=== PATIENT | male | born 1995 | race American Indian/Alaskan Native ===

== ENCOUNTER 2018-09-19 19:42 | Emergency (ER) | payer SELFPAY ==
--- NOTE | 2018-09-19 20:37 | Emergency Department Report ---
Chief Complaint: Extremity Injury, Lower Stated Complaint: ANKLE PAIN Time Seen by Provider: 09/19/18 20:37 - HPI History of Present Illness: R ANKLE PAIN P PLAYING BBALL RX NONE ALLERGY NONE PMH NONE PSH NONE N/V INTACT. MSE COMPLETED - Exam Vital Signs: Vital Signs 09/19/18 20:17 Temperature 99.3 F Pulse Rate 83 Respiratory 18 Rate Blood Pressure 138/78 O2 Sat by Pulse 100 Oximetry MSE screening note: Focused history and physical exam performed. Due to findings the following was ordered: ED Disposition for MSE Condition: Stable
--- NOTE | 2018-09-19 21:16 | XRay Report ---
XR ANKLE 3+V RT CLINICAL INDICATION: Male, 23 years of age. rt ankle injury/pain COMPARISON: None available. FINDINGS: 3 views of right ankle obtained. Ankle mortise is preserved. Bony structures are intact. No acute fracture or dislocation. IMPRESSION: No acute bony findings. This document is electronically signed by Jeremy Aburto DO., September 19 2018 09:14:25 PM ET
[2018-09-19] MEDS ORDERED: NORCO 5/325 PO ONE (23:56)
--- NOTE | 2018-09-20 01:23 | Emergency Department Report ---
ED Lower Extremity HPI - General Chief Complaint: Extremity Injury, Lower Stated Complaint: ANKLE PAIN Time Seen by Provider: 09/19/18 20:37 Source: patient Mode of arrival: Ambulatory Limitations: No Limitations - History of Present Illness Initial Comments: Patient is a 23 y/o aam who presents for right ankle pain 5/10 aching states he twisted ankle playing basket ball pt is partial weight bearing there is no bleeding MD Complaint: ankle injury Onset/Timin -: hour(s) Injury: Ankle: Right Type of Injury: eversion Place: street/outdoors Severity: moderate Severity scale (0 -10): 6 Improves With: nothing Worsens With: weight bearing, movement, palpation Context: running Associated Symptoms: snap/pop sensation, swelling, tingling, able to partially bear weight - Related Data Previous Rx's Medication Instructions Recorded Last Taken Type Cyclobenzaprine [Flexeril] 10 mg PO TID PRN #30 tablet 09/20/18 Unknown Rx Naproxen 500 mg PO BID PRN #30 tablet 09/20/18 Unknown Rx Allergies Allergy/AdvReac Type Severity Reaction Status Date / Time No Known Allergies Allergy Verified 09/19/18 20:14 ED Review of Systems ROS: Stated complaint: ANKLE PAIN Other details as noted in HPI Constitutional: denies: chills, fever Eyes: denies: eye pain, eye discharge, vision change ENT: denies: ear pain, throat pain Respiratory: denies: cough, shortness of breath, wheezing Cardiovascular: denies: chest pain, palpitations Endocrine: no symptoms reported Gastrointestinal: denies: abdominal pain, nausea, diarrhea Genitourinary: denies: urgency, dysuria Musculoskeletal: joint swelling (right ankle pain swelling ). denies: back pain, arthralgia Skin: denies: rash, lesions Neurological: denies: headache, weakness, paresthesias Psychiatric: denies: anxiety, depression Hematological/Lymphatic: denies: easy bleeding, easy bruising ED Past Medical Hx - Past Medical History Hx Asthma: Yes - Surgical History Past Surgical History?: No - Social History Smoking Status: Never Smoker Substance Use Type: None - Medications Home Medications: Home Medications Medication Instructions Recorded Confirmed Last Taken Type Cyclobenzaprine [Flexeril] 10 mg PO TID PRN #30 tablet 09/20/18 Unknown Rx Naproxen 500 mg PO BID PRN #30 tablet 09/20/18 Unknown Rx ED Physical Exam - General Limitations: No Limitations General appearance: alert, in no apparent distress - Head Head exam: Present: atraumatic, normocephalic - Eye Eye exam: Present: normal appearance, PERRL, EOMI Pupils: Present: normal accommodation - ENT ENT exam: Present: normal orophraynx, mucous membranes moist, TM's normal bilaterally, normal external ear exam - Expanded ENT Exam Expanded Ear exam: Present: normal external inspection Mouth exam: Absent: trismus Throat exam: Positive: tonsillar erythema, tonsillomegaly, other (uvula midline no stridor no lesions no exudate ). Negative: tonsillar exudate, R peritonsillar mass, L peritonsillar mass - Neck Neck exam: Present: normal inspection, full ROM, lymphadenopathy. Absent: tenderness, meningismus, thyromegaly - Expanded Neck Exam Expanded Neck exam: Absent: tenderness, midline deformity, anterior neck swelling, thy roid mass, carotid bruit, tracheal deviation - Respiratory Respiratory exam: Present: normal lung sounds bilaterally. Absent: respiratory distress, wheezes, stridor, chest wall tenderness - Cardiovascular Cardiovascular Exam: Present: regular rate, normal rhythm, normal heart sounds. Absent: systolic murmur, diastolic murmur, rubs, gallop - GI/Abdominal GI/Abdominal exam: Present: soft, normal bowel sounds - Rectal Rectal exam: Present: deferred - Extremities Exam Extremities exam: Present: normal inspection - Back Exam Back exam: Present: normal inspection, full ROM. Absent: tenderness, CVA tenderness (R), CVA tenderness (L), muscle spasm, paraspinal tenderness, vertebral tenderness, rash noted - Neurological Exam Neurological exam: Present: alert, oriented X3, CN II-XII intact, normal gait, reflexes normal - Psychiatric Psychiatric exam: Present: normal affect - Skin Skin exam: Present: warm, dry, intact, normal color. Absent: rash ED Course Vital Signs 09/19/18 09/19/18 09/20/18 20:17 20:41 00:24 Temperature 99.3 F 99.5 F Pulse Rate 83 87 Respiratory 18 18 16 Rate Blood Pressure 138/78 138/78 O2 Sat by Pulse 100 100 Oximetry ED Lower Extremity MDM - Radiology Data Radiology results: report reviewed, image reviewed no fracture mild soft tissue swelling - Medical Decision Making this is a ankle sprain xray neg for fracture , plan ankle stirrup , crutches follow up with ortho, naproxen flexeril for pain and spasm splint check ,crutche teacing, d/c to home in stable condition. Critical care attestation.: If time is entered above; I have spent that time in minutes in the direct care of this critically ill patient, excluding procedure time. ED Disposition Clinical Impression: Ankle sprain Qualifiers: Encounter type: initial encounter Involved ligament of ankle: unspecified ligament Laterality: right Qualified Code(s): S93.401A - Sprain of unspecified ligament of right ankle, initial encounter Disposition: TO HOME OR SELFCARE Is pt being admited?: No Does the pt Need Aspirin: No Condition: Stable Instructions: Ankle Sprain (ED), Ankle Exercises (GEN), Ankle Stirrup Splint (ED) Prescriptions: Cyclobenzaprine [Flexeril] 10 mg PO TID PRN #30 tablet PRN Reason: Muscle Spasm Naproxen 500 mg PO BID PRN #30 tablet PRN Reason: pain Referrals: GAGANDEEP MATOS MD [Staff Physician] - 3-5 Days Forms: Work/School Release Form(ED) Time of Disposition: 01:40
[2018-09-20 02:37] VITALS: BP 125/73
== END 2018-09-20 01:40 | disposition home or self-care (01) ==
LOC: ED 19:42
DX: S93.401A Sprain of unspecified ligament of right ankle, initial encounter (principal); J45.909 Unspecified asthma, uncomplicated; W21.05XA Struck by basketball, initial encounter; Y93.67 Activity, basketball; Y92.488 Other paved roadways as the place of occurrence of the external cause; Y99.8 Other external cause status

== ENCOUNTER 2018-12-21 11:18 | Emergency (ER) | payer SELFPAY ==
[2018-12-21 11:29] VITALS: BP 120/67
--- NOTE | 2018-12-21 11:29 | Event Note ---
ED Screening Note ED Screening Note: CO LEFT ANKLE PAIN PLAYED BBALL YESTERDAY AND FELL PMH NONE RX NONE This initial assessment/diagnostic orders/clinical plan/treatment(s) is/are subject to change based on patients health status, clinical progression and re- assessment by fellow clinical providers in the ED. Further treatment and workup at subsequent clinical providers discretion. Patient/guardian urged not to elope from the ED as their condition may be serious if not clinically assessed and managed. Initial orders include:
[2018-12-21] MEDS ORDERED: IBUPROFEN PO ONE (11:30)
--- NOTE | 2018-12-21 12:10 | XRay Report ---
LEFT ANKLE, 3 views: History: left ankle pain. Bone mineralization is normal. No acute osseous abnormality or joint pathology is identified. The soft tissues are unremarkable. IMPRESSION: Unremarkable left ankle films.
--- NOTE | 2018-12-21 12:21 | Emergency Department Report ---
ED Back Pain/Injury HPI - General Chief Complaint: Extremity Injury, Lower Stated Complaint: LT ANKLE INJURY Time Seen by Provider: 12/21/18 11:28 Source: patient Limitations: No Limitations - History of Present Illness Initial Comments: 23 yo with ankle pain p getting foot trapped at work. ambulatory with limp. no swelling. had felix on arrival to ER. no meds at home to dec pain. - Related Data Previous Rx's Medication Instructions Recorded Last Taken Type Cyclobenzaprine [Flexeril] 10 mg PO TID PRN #30 tablet 09/20/18 Unknown Rx Naproxen 500 mg PO BID PRN #30 tablet 09/20/18 Unknown Rx Allergies Allergy/AdvReac Type Severity Reaction Status Date / Time No Known Allergies Allergy Verified 09/19/18 20:14 ED Review of Systems ROS: Stated complaint: LT ANKLE INJURY Other details as noted in HPI Comment: All other systems reviewed and negative ED Past Medical Hx - Past Medical History Medical history: no medical history ED Back Pain Physical Exam - Exam General: Vital signs noted. No distress. Alert and acting appropriately. a/o no focal deficit s1s2 lungs cta lle - dp plus 2, no swelling, pain with movement, knee wnl, rapid cap refill ED Course Vital Signs 12/21/18 11:28 Temperature 98 F Pulse Rate 64 Respiratory 16 Rate Blood Pressure 120/67 O2 Sat by Pulse 99 Oximetry Ed Back Pain Tests - Tests Tests: Normal X Rays ED Medical Decision Making - Radiology Data Radiology results: report reviewed, image reviewed - Medical Decision Making pain with ambulation neurovasc intact will immobilize and dc home with RICE follow up with ortho Vital Signs 12/21/18 11:28 Temperature 98 F Pulse Rate 64 Respiratory 16 Rate Blood Pressure 120/67 O2 Sat by Pulse 99 Oximetry Critical care attestation.: If time is entered above; I have spent that time in minutes in the direct care of this critically ill patient, excluding procedure time. ED Disposition Clinical Impression: Ankle sprain Disposition: DC-01 TO HOME OR SELFCARE Is pt being admited?: No Does the pt Need Aspirin: No Condition: Stable Instructions: Ankle Sprain (ED) Additional Instructions: rest ice elevate felix crutches over the counter motrin or tylenol for pain follow up with ortho this week referral below Referrals: BONIFACIO URIBE MD [Primary Care Provider] - 3-5 Days GAGANDEEP MATOS MD [Staff Physician] - 3-5 Days Forms: Work/School Release Form(ED) Time of Disposition: 12:20
== END 2018-12-21 13:02 | disposition home or self-care (01) ==
LOC: ED 11:18
DX: S93.402A Sprain of unspecified ligament of left ankle, initial encounter (principal); X58.XXXA Exposure to other specified factors, initial encounter; Y93.89 Activity, other specified; Y92.89 Other specified places as the place of occurrence of the external cause; Y99.8 Other external cause status